=== PATIENT | female | born 1960 | race Two or more races ===

== ENCOUNTER 2021-10-29 11:00 | Inpatient (IN) | payer OTHER ==
[2021-10-29] MEDS ORDERED: COZAAR100 MG PO (14:37)
[2021-11-04] MEDS ORDERED: ALENDRONATE SOD70 MG (08:55)
[2021-11-04] MEDS ORDERED: ROSUVASTATIN CA10 MG (08:55)
[2021-11-24] MEDS ORDERED: ACID REDUCER20 M1 PO (08:12)
== END 2021-11-24 12:48 | disposition home or self-care (01) | DRG 330 ==
LOC: O/R 11-04 05:30 → SURG 11-04 05:30 → SURH 11-08 12:36
PROVIDERS: ADMIT Surgery; ATTEND Surgery
PROC: 07BB4ZZ Excision of Mesenteric Lymphatic, Percutaneous Endoscopic Approach (ICD-10-PCS; 2021-11-04)
PROC: 07BC4ZZ Excision of Pelvis Lymphatic, Percutaneous Endoscopic Approach (ICD-10-PCS; 2021-11-04)
PROC: 0DB84ZZ Excision of Small Intestine, Percutaneous Endoscopic Approach (ICD-10-PCS; 2021-11-04)
PROC: 0DTF4ZZ Resection of Right Large Intestine, Percutaneous Endoscopic Approach (ICD-10-PCS; principal; 2021-11-04 10:30)
PROC: 0D9670Z Drainage of Stomach with Drainage Device, Via Natural or Artificial Opening (ICD-10-PCS; 2021-11-07)
PROC: BW2110Z Computerized Tomography (CT Scan) of Abdomen and Pelvis using Low Osmolar Contrast, Unenhanced and Enhanced (ICD-10-PCS; 2021-11-11)
PROC: 8E0ZXY6 Isolation (ICD-10-PCS; 2021-11-12)
PROC: 0DJ08ZZ Inspection of Upper Intestinal Tract, Via Natural or Artificial Opening Endoscopic (ICD-10-PCS; 2021-11-19)
PROC: BW2110Z Computerized Tomography (CT Scan) of Abdomen and Pelvis using Low Osmolar Contrast, Unenhanced and Enhanced (ICD-10-PCS; 2021-11-21)
DX: C18.0 Malignant neoplasm of cecum (principal); A04.72 Enterocolitis due to Clostridium difficile, not specified as recurrent; K56.51 Intestinal adhesions [bands], with partial obstruction; K91.89 Other postprocedural complications and disorders of digestive system; K56.7 Ileus, unspecified; J98.11 Atelectasis; K29.70 Gastritis, unspecified, without bleeding; R59.0 Localized enlarged lymph nodes; N73.6 Female pelvic peritoneal adhesions (postinfective); I10 Essential (primary) hypertension; E78.5 Hyperlipidemia, unspecified; K44.9 Diaphragmatic hernia without obstruction or gangrene

== ENCOUNTER 2022-03-23 12:38 | Inpatient (IN) | payer OTHER ==
[~2022-03-23] VITALS: Ht 198.1 cm; Wt 65.8 kg
[~2022-03-23 12:38] MED LIST: ACID REDUCER20 M1 PO; ALENDRONATE SOD70 MG; COZAAR100 MG PO; ROSUVASTATIN CA10 MG; ULTRACET PO
--- NOTE | 2022-03-23 13:18 | NUR ---
SE RECIBE PACIENTE FEMENINA DE 61 ANOS DE EDAD DESPIERTA Y ALERTA CON QUEJA PRINCIPAL DE DOLOR ABD, DIARREAS Y VOMITOS DESDE HACE PHILLIP SEMANA
--- NOTE | 2022-03-23 13:39 | NUR ---
PACIENTE SE OBSERVA HIPOACTIVA, SE SIENTE FRIA. SE INTENTA KATE TEMPERATURA EN VARIAS OCASIONES SIN EXITO. SE INTENTA KATE PRESION ARTERIAL MANUAL EN VARIAS OCASIONES TAMBIEN SIN EXITO. SE UBICA PACIENTE EN CUBICULO #[address] A [address] MOLINA
--- NOTE | 2022-03-23 14:22 | NUR ---
SE RECIBE PTE HIPOACTIVA.SE ERI MUESTRAS DE LABORATORIO USANDO MEDIDAS ASEPTICAS.VENOPUNCION PATENTE HAYDEE DE EDEMA Y ERITEMA RECIBIENDO 0.9NSS BAJANDO A 450ML/HR.SE ORIENTA PTE SOBRE AREA DE CUIDADO CRITICO Y ANETTE PROTOCOLOS.
--- NOTE | 2022-03-23 15:26 | NUR ---
0326- SE RECIBE PACIENTE ALERTA Y ORIENTADA, CONECTADA A MONITOR CARDIACO Y OXIMETRIA DE PULSO CONTINUO. CANULA NASAL A 2 LITROS. TIENE 2 CANALIZACIONES, #20 BRAZO RONALDO, #22 BRAZO DOUG. AREA DE VENOPUNCION HAYDEE DE EDEMA Y ERITEMA BAJANDO .9 FULL DRIP.U/A PENDIENTE Y PLACA PORTABLE DERECHA. SE MANTIENE EN OBSERVACION POR CAMBIOS SIGNIFICATIVOS.
[2022-03-24] MEDS ORDERED: FAMOTIDINE20 MG (09:24)
[2022-03-24] MEDS ORDERED: DIPHENHYDR50 MG/1 M1 (09:24)
[2022-03-24] MEDS ORDERED: OXALIPLATI100 MG/20 (09:24)
[2022-03-24] MEDS ORDERED: ONDANSETRON4 MG/2 M5 (09:24)
[2022-03-24] MEDS ORDERED: CLONAZEPAM0.5 MG (09:24)
[2022-03-24] MEDS ORDERED: CAPECITABINE500 MG (09:24)
[2022-03-24] MEDS ORDERED: EZETIMIBE10 MG (09:24)
[2022-03-24] MEDS ORDERED: DEXAMETHASO4 MG/1 M1 (09:24)
[2022-03-24] MEDS ORDERED: METOPROLOL SUCC25 MG (09:24)
[2022-03-24] MEDS ORDERED: FLUOROURAC500 MG/10 (09:25)
[2022-03-24] MEDS ORDERED: OMEPRAZOLE20 MG (09:25)
[2022-03-24] MEDS ORDERED: LEUCOVORIN CAL350 MG (09:25)
[2022-03-24] MEDS ORDERED: ALENDRONATE SOD70 MG (09:25)
[2022-03-24] MEDS ORDERED: NORVASC2.5 MG (09:25)
[2022-04-09] MEDS ORDERED: INTESTINEX680 M1 PO (13:46)
[2022-04-09] MEDS ORDERED: CHOLESTYRAMINE P4 GM PO (13:46)
[2022-04-09] MEDS ORDERED: PANTOPRAZOLE SO40 MG PO (13:46)
[2022-04-09] MEDS ORDERED: PRE PROTEIN1 EACH PO (13:46)
[2022-04-09] MEDS ORDERED: AMLODIPINE BESYL5 MG PO (13:46)
[2022-04-09] MEDS ORDERED: TOPROL XL25 M1 PO (13:46)
== END 2022-04-09 15:09 | disposition home or self-care (01) | DRG 682 ==
LOC: ER 12:38 → MEDJ 19:32 → ICU-2 19:32 → MEDJ 03-25 15:39
PROVIDERS: ADMIT Internal Medicine Geriatric Medicine; ATTEND Internal Medicine Geriatric Medicine
PROC: BW21ZZZ Computerized Tomography (CT Scan) of Abdomen and Pelvis (ICD-10-PCS; 2022-03-23)
PROC: BT4JZZZ Ultrasonography of Kidneys and Bladder (ICD-10-PCS; 2022-03-23)
PROC: 02HV33Z Insertion of Infusion Device into Superior Vena Cava, Percutaneous Approach (ICD-10-PCS; 2022-03-24)
PROC: BD11ZZZ Fluoroscopy of Esophagus (ICD-10-PCS; 2022-03-25)
PROC: 4A12X4Z Monitoring of Cardiac Electrical Activity, External Approach (ICD-10-PCS; 2022-03-26)
PROC: 0DB48ZX Excision of Esophagogastric Junction, Via Natural or Artificial Opening Endoscopic, Diagnostic (ICD-10-PCS; principal; 2022-03-30)
PROC: 0DBB8ZX Excision of Ileum, Via Natural or Artificial Opening Endoscopic, Diagnostic (ICD-10-PCS; 2022-04-02)
PROC: 0DBL8ZX Excision of Transverse Colon, Via Natural or Artificial Opening Endoscopic, Diagnostic (ICD-10-PCS; 2022-04-02)
PROC: 0DBM8ZX Excision of Descending Colon, Via Natural or Artificial Opening Endoscopic, Diagnostic (ICD-10-PCS; 2022-04-02)
PROC: 0DBN8ZX Excision of Sigmoid Colon, Via Natural or Artificial Opening Endoscopic, Diagnostic (ICD-10-PCS; 2022-04-02)
PROC: 0DBP8ZX Excision of Rectum, Via Natural or Artificial Opening Endoscopic, Diagnostic (ICD-10-PCS; 2022-04-02)
PROC: 30243N1 Transfusion of Nonautologous Red Blood Cells into Central Vein, Percutaneous Approach (ICD-10-PCS; 2022-04-03)
DX: N17.9 Acute kidney failure, unspecified (principal); R57.1 Hypovolemic shock; C18.9 Malignant neoplasm of colon, unspecified; K52.1 Toxic gastroenteritis and colitis; N39.0 Urinary tract infection, site not specified; T45.1X5A Adverse effect of antineoplastic and immunosuppressive drugs, initial encounter; E86.0 Dehydration; N28.9 Disorder of kidney and ureter, unspecified; E87.6 Hypokalemia; E86.9 Volume depletion, unspecified; R00.0 Tachycardia, unspecified; R13.10 Dysphagia, unspecified; K22.2 Esophageal obstruction; I95.9 Hypotension, unspecified; K21.9 Gastro-esophageal reflux disease without esophagitis; F43.20 Adjustment disorder, unspecified; B96.29 Other Escherichia coli [E. coli] as the cause of diseases classified elsewhere; R10.84 Generalized abdominal pain; D64.9 Anemia, unspecified; K20.90 Esophagitis, unspecified without bleeding; Z92.21 Personal history of antineoplastic chemotherapy

== ENCOUNTER 2022-06-25 19:05 | Emergency (ER) | payer OTHER ==
[~2022-06-25] VITALS: Ht 167.6 cm; Wt 68.0 kg
[~2022-06-25 19:05] MED LIST changes: +AMLODIPINE BESYL5 MG PO; +CAPECITABINE500 MG; +CHOLESTYRAMINE P4 GM PO; +CLONAZEPAM0.5 MG; +DEXAMETHASO4 MG/1 M1; +DIPHENHYDR50 MG/1 M1; +EZETIMIBE10 MG; +FAMOTIDINE20 MG; +FLUOROURAC500 MG/10; +INTESTINEX680 M1 PO; +LEUCOVORIN CAL350 MG; +METOPROLOL SUCC25 MG; +NORVASC2.5 MG; +OMEPRAZOLE20 MG; +ONDANSETRON4 MG/2 M5; +OXALIPLATI100 MG/20; +PANTOPRAZOLE SO40 MG PO; +PRE PROTEIN1 EACH PO; +TOPROL XL25 M1 PO
== END 2022-06-26 00:12 | disposition home or self-care (01) ==
LOC: ER 19:05
DX: K52.9 Noninfective gastroenteritis and colitis, unspecified (principal); E86.0 Dehydration; C18.9 Malignant neoplasm of colon, unspecified

== ENCOUNTER 2022-09-04 20:11 | Emergency (ER) | payer OTHER ==
[~2022-09-04] VITALS: Ht 167.6 cm; Wt 68.0 kg
[2022-09-04] MEDS ORDERED: ATACAND32 MG PO (21:03)
[2022-09-04] MEDS ORDERED: PRE PROTEIN1 EACH PO (21:04)
[2022-09-04] MEDS ORDERED: CHILDREN'S ASPI81 MG PO (21:05)
== END 2022-09-05 00:56 | disposition home or self-care (01) ==
LOC: ER 20:11
DX: I82.890 Acute embolism and thrombosis of other specified veins (principal); R53.81 Other malaise; I10 Essential (primary) hypertension

== ENCOUNTER 2022-09-05 12:56 | Emergency (ER) | payer OTHER ==
[~2022-09-05] VITALS: Ht 167.6 cm; Wt 68.0 kg
[~2022-09-05 12:56] MED LIST changes: +ATACAND32 MG PO; +CHILDREN'S ASPI81 MG PO
== END 2022-09-05 16:31 ==
LOC: ER 12:56
DX: I82.499 Acute embolism and thrombosis of other specified deep vein of unspecified lower extremity (principal); C18.9 Malignant neoplasm of colon, unspecified; E78.00 Pure hypercholesterolemia, unspecified; I10 Essential (primary) hypertension

== ENCOUNTER 2024-03-08 08:02 | Outpatient (CLI) | payer OTHER ==
[~2024-03-08 08:02] MED LIST changes: +IRBESARTAN150 MG PO; +OMEGA-31000 MG PO; +XARELTO20 MG PO; +ZETIA10 MG PO
[2024-03-08 09:26] LABS: INR 0.99; PROTHROMBIN TIME 10.8 SECONDS (9.0-11.5)
== END 2024-03-08 08:03 | disposition home or self-care (01) ==
LOC: LAB 08:02
PROVIDERS: ATTEND Internal Medicine Geriatric Medicine
DX: D68.9 Coagulation defect, unspecified (principal)

== ENCOUNTER 2024-03-10 06:11 | Day surgery (SDC) | payer OTHER ==
[2024-03-10] MEDS ORDERED: BUPIVACAINE HCL/Mpf 0.5% 10ML VIAL ONE (10:25)
[2024-03-10] MEDS ORDERED: CEFAZOLIN SODIUM 1,000 MG VIAL ONE (10:25)
[2024-03-10] MEDS ORDERED: LIDOCAINE HCL 1%/EPINEPHRINE 20ML VIAL IJ ONE (10:25)
[2024-03-10] MEDS ORDERED: TRAM1TAB98 PO (10:45)
== END 2024-03-10 13:50 | disposition home or self-care (01) ==
LOC: CIR.AMB 06:11
PROVIDERS: ATTEND Surgery
DX: C18.0 Malignant neoplasm of cecum (principal); T82.594A Other mechanical complication of infusion catheter, initial encounter; I10 Essential (primary) hypertension